=== PATIENT | female | born 1980 | race Caucasian/White ===

== ENCOUNTER 2017-03-13 11:58 | Inpatient (IN) | payer SELFPAY ==
[2017-03-13] MEDS ORDERED: Sodium Chloride 0.9% 1,000 ML IV ONE (12:22)
--- NOTE | 2017-03-13 12:27 | ED Physician Chart ---
Chief Complaint/HPI - Patient Information Date Seen:: 03/13/17 Time Seen:: 12:23 Chief Complaint:: dizzy History of Present Illness:: pt feels very dizzy since last nt...worse w turning head. no BROWNE. no n/v/d. feels numb in l arm and left face. very anxious. no leonila med hx. no cva hx. no mi hx. no meds tried. no h/o trauma. no recent illness. pt speaks only argent[place]. Allergies:: Allergies Allergy/AdvReac Type Severity Reaction Status Date / Time tetracycline Allergy Verified 03/13/17 12:09 Vitals:: Vital Signs - 8 hr 03/13/17 12:04 Temp 97.4 F HR 97 RR 16 BP 143/98 O2 Sat % 98 Historian:: Patient Review of Systems - Review of Systems General/Constitutional: No fever, No chills, No weight loss, No weakness, No diaphoresis, No edema, No loss of appetite Skin: No skin lesions, No rash, No bruising Head: No headache, No light-headedness Eyes: No loss of vision, No pain, No diplopia ENT: No earache, No nasal drainage, No sore throat, No tinnitus Neck: No neck pain, No swelling, No thyromegaly, No stiffness, No mass noted Cardio Vascular: No chest pain, No palpitations, No PND, No orthopnea, No edema Pulmonary: No SOB, No cough, No sputum, No wheezing GI: No nausea, No vomiting, No diarrhea, No pain, No melena, No hematochezia, No constipation, No hematemesis G/U: No dysuria, No frequency, No hematuria Musculoskeletal: No bone or joint pain, No back pain, No muscle pain Endocrine: No polyuria, No polydipsia Psychiatric: No prior psych history, No depression, Anxiety, No suicidal ideation Hematopoietic: No bruising, No lymphadenopathy Allergic/Immuno: No urticaria, No angioedema Neurological: No syncope, No focal symptoms, No weakness, No paresthesia, No headache, No seizure, Dizziness, No confusion, No vertigo Past Medical History - Past Medical History Past Medical History: No significant medical hx Social History: Non Smoker, No Alcohol, No Drug Use Medication: Reviewed Family Medical History - Family Member Mother Hx Family Stroke: Yes (sister) Other Medical History: denies family medical hx Physical Exam - Physical Examination General/Constitutional: Awake, Well-developed, well-nourished, Alert, No distress, GCS 15, Non-toxic appearing, Ambulatory Head: Atraumatic Eyes: Lids, conjuctiva normal, PERRL, EOMI Skin: Nl inspection, No rash, No skin lesions, No ecchymosis, Well hydrated, No lymphadenopathy ENMT: External ears, nose nl, Nasal exam nl, Lips, teeth, gums nl Neck: Nontender, Full ROM w/o pain, No JVD, No nuchal rigidity, No bruit, No mass, No stridor Respiratory: Nl effort/Exclusion, Clear to Auscultation, No Wheeze/Rhonchi/Rales Cardio Vascular: RRR, No murmur, gallop, rubs, NL S1 S2 GI: No tenderness/rebounding/guarding, No organomegaly, No hernia, Normal BS's, Nondistended, No mass/bruits, No McBurney tenderness : No CVA tenderness Extremities: No tenderness or effusion, Full ROM, normal strength in all extremities, No edema, Normal digits & nails Neuro/Psych: Alert/oriented, DTR's symmetric, Normal sensory exam, Normal motor strength, Judgement/insight normal, Mood normal, Normal gait, No focal deficits Other Neuro/Psych comments:: pt dizzy increased w eomi testing but no defecits. no nystagmus seen. pt says decreased lt touch sensation to l arm and l leg and l side of face no alt in strength or coordination Misc: normal gait, Normal back, No paraspinal tenderness Labs/Radiology/EKG Results - Lab Results Results: Laboratory Tests 03/13/17 03/13/17 03/13/17 12:34 12:34 12:34 WBC 11.7 H RBC 4.99 Hgb 14.2 Hct 42.0 MCV 84.2 MCH 28.5 MCHC Differential 33.9 RDW 12.6 Plt Count 292 MPV 8.5 Neutrophils % 69.2 Lymphocytes % 25.7 Monocytes % 3.6 Eosinophils % 1.1 Basophils % 0.4 Sodium 133 L Potassium 3.1 L Chloride 104 Carbon Dioxide 22.0 Anion Gap 10.1 BUN 14 Creatinine 0.8 Est GFR ( Amer) > 60.0 Est GFR (Non-Af Amer) > 60.0 BUN/Creatinine Ratio 17.5 Glucose 132 H Calcium 9.5 Total Bilirubin 0.4 AST 10 L ALT 14 Alkaline Phosphatase 60 Troponin I < 0.01 L Total Protein 7.5 Albumin 4.2 Globulin 3.3 Albumin/Globulin Ratio 1.3 Urine Test 03/13/17 13:10 WBC RBC Hgb Hct MCV MCH MCHC Differential RDW Plt Count MPV Neutrophils % Lymphocytes % Monocytes % Eosinophils % Basophils % Sodium Potassium Chloride Carbon Dioxide Anion Gap BUN Creatinine Est GFR ( Amer) Est GFR (Non-Af Amer) BUN/Creatinine Ratio Glucose Calcium Total Bilirubin AST ALT Alkaline Phosphatase Troponin I Total Protein Albumin Globulin Albumin/Globulin Ratio Urine Test NEGATIVE k low was corrected w 40meq po k. - Radiology Results Results: ct HEAD NAD : 1980 Age/Sex: 36/F Location: ER Ordering Physician: Juan Luis Badillo M.D. Procedure(s): CT HEAD W/O CONTRAST Date of Service: 03/13/17 Accession Number: [id number] Head CT without intravenous contrast Indication: Dizziness and left arm numbness Comparison: None Technique: Axial images were obtained from the vertex to the skull base without IV contrast. Coronal reconstructions were made. Total DLP: 566, CTDI35 FINDINGS: Images of the brain obtained without contrast demonstrate no acute hemorrhage. No mass lesions identified. The ventricles and basal cisterns are patent. The melendez-white matter differentiation is preserved. There is no mass effect or midline shift. No skull fractures identified. No soft tissue swelling. The paranasal sinuses are clear. IMPRESSION: No CT evidence of an acute abnormality. - EKG Interpretations EKG Time:: 12:40 Rate & Rhythm: nsr 90 [place]: 58 qrs Intervals: nrml st/t waves ED Septic Shock - . Is Septic Shock (SBP<90, OR Lactate>4 mmol\L) present?: No - <6hrs of presentation: Vital Signs: Vital Signs - 8 hr 03/13/17 12:04 Temp 97.4 F HR 97 RR 16 BP 143/98 O2 Sat % 98 Reassessment (Disposition) - Reassessment Reassessment:: 16;00p) results reviewed w pt through [place] phone can tester. Pt informed of all results. her dizziness has improved w meclizine. she is still having numbness ot the left face and left arm which has improved some but still persists. explained to pt that I believe most likely she has vertigo. she has no hx of this. however I do not have a explanation for her left arm/face numbness and despite nrml ct head cant exclude a cva/tia or other neuro process. dw pt plan and she is willing to be a admit to have neuro consult and observation. call placed to manager transfusion ..awaiting call back. no return call by 4;32p case kyler razo..will admit for cva eval. Reassessment Condition:: Unchanged - Diagnosis Diagnosis:: 1 dizziness - likely vertigo 2 left side numbness - r/o cva - Patient Disposition Admitted to:: Telemetry Condition at Disposition:: Unchanged ED Discharge Plan - Patient Disposition Admit/Discharge/Transfer: Other Care w/in this hosp Condition at Disposition: Stable
[2017-03-13 13:03] LABS: ALB/GLOB RATIO 1.3 (1.0-1.8); ALKALINE PHOSPHATASE 60 U/L (34-104); ANION GAP 10.1 (7.0-16.0); BILIRUBIN,TOTAL 0.4 mg/dL (0.3-1.0); BUN - UREA NITROGEN 14 mg/dL (7-25); BUN/CREATININE RATIO 17.5; CALCIUM SERUM 9.5 mg/dL (8.6-10.3); CHLORIDE 104 mEq/L (98-107); CREATININE - SERUM 0.8 mg/dL (0.6-1.2); GLUCOSE 132 mg/dL (70-105); POTASSIUM SERUM 3.1 mEq/L (3.5-5.1); SGOT 10 U/L (13-39); SGPT/ALT 14 U/L (7-52); SODIUM SERUM 133 mEq/L (136-145)
[2017-03-13 13:11] LABS: % BASOPHILS 0.4 % (0.0-2.0); % EOSINOPHILS 1.1 % (0.0-5.0); % LYMPHOCYTES 25.7 % (20.0-50.0); % MONOCYTES 3.6 % (2.0-10.0); % NEUTROPHILS 69.2 % (40.0-80.0); HEMOGLOBIN 14.2 gm/dL (11.7-15.5); MEAN CELL VOLUME 84.2 fl (81-100); MEAN CORPUSCULAR HEMOGLOBIN 28.5 pg (27.0-31.0); MEAN CORPUSCULAR HGB CONC 33.9 pg (28.0-36.0); MEAN PLATELET VOLUME 8.5 fl; NEUTROPHILE ABSOLUTE 8.2 Th/cmm (1.8-8.0); PLATELET COUNT 292 Th/cmm (150-400); RED BLOOD COUNT 4.99 Mil/cmm (3.80-5.10); RED CELL DISTRIBUTION WIDTH 12.6 % (11.5-20.0); WHITE BLOOD COUNT 11.7 Th/cmm (4.8-10.8)
[2017-03-13] MEDS ORDERED: Potassium Chloride 20 mEq ER Tab PO ONE ×2 (14:57→15:04)
--- NOTE | 2017-03-13 15:24 | Diagnostic Imaging Report ---
Head CT without intravenous contrast Indication: Dizziness and left arm numbness Comparison: None Technique: Axial images were obtained from the vertex to the skull base without IV contrast. Coronal reconstructions were made. Total DLP: 566, CTDI35 FINDINGS: Images of the brain obtained without contrast demonstrate no acute hemorrhage. No mass lesions identified. The ventricles and basal cisterns are patent. The melendez-white matter differentiation is preserved. There is no mass effect or midline shift. No skull fractures identified. No soft tissue swelling. The paranasal sinuses are clear. IMPRESSION: No CT evidence of an acute abnormality.
[2017-03-13 22:57] VITALS: BP 127/84
--- NOTE | 2017-03-14 02:31 | Admit Criteria Form ---
Admit Criteria Forms - Admit Criteria Diagnosis: VERTIGO Clinical Indications for Admission to Inpatient Care (Place 'X' for any and all applicable criteria): Admission is indicated for ANY ONE of the following(1)(2)(3)(4): [ ]I. Acute bacterial labyrinthitis [X ]II. A suspected etiology that requires admission for treatment [X ]III. Inpatient admission required rather than observation care (Also use Vertigo: Observation Care as appropriate) because of ANY ONE of the following: [ ]a) Hemodynamic instability that is severe or persistent [ ]b) Signs or symptoms that are severe or persistent (eg, vomiting , orthostasis, inability to ambulate) [ ]c) Cardiac arrhythmias of immediate concern [ ]d) Severe (new) neurologic findings requiring inpatient care as indicated by ANY ONE of the following(6)(7) [ ]1) Cerebral bleeding, ischemia, or vasospasm(8)(9) [ ]2) Increased intracranial pressure or hydrocephalus(10) (11)(12) [ ]3) Papilledema [ ]4) Cerebral edema [ ]5) Mass effect on CT scan [ ]e) Vomiting that is severe or persistent [ ]f) Continuous IV infusion of anticoagulation, platelet inhibitor, vasoactive, or antiarrhythmic medication [ ]g) Cerebral bleeding, hydrocephalus, or vasospasm monitoring(14) [ ]h) Increased intracranial pressure or cerebral edema monitoring [X ]i) Other condition, treatment or monitoring requiring inpatient admission [ ]IV. Cerebellar, brainstem, or cerebral ischemia or hemorrhage(5) Extended stay beyond goal length of stay may be needed for evaluating and treating a specific cause of dizziness, including(26): [ ]a) Head injury (27) ( Also use Traumatic Brain Injury, Nonsurgical Treatment guideline) [ ]b) New-onset vertebrobasilar vascular insufficiency(23) [ ]c) Acute Meniere disease with intractable symptoms [ ]d) Cardiac arrhythmias or conduction defects [ ]e) Acute neurologic event causing dizziness [ ]f) Myocardial ischemia [ ]g) Acute bacterial labyrinthitis(1) [ ]h) Severe acute vestibular neuronitis(18) The original [facility] content created by Jason Maldonado has been revised. The portions of the content which have been revised are identified through the use of italic text or in bold, and [employer] has neither reviewed nor approved the modified material. All other unmodified content is copyright [facility]. Please see references footnoted in the original [facility] edition 2016 Admit Criteria Met?: Yes
[2017-03-14] MEDS ORDERED: Aspirin 81mg Chewable Tab PO SCH (09:00)
--- NOTE | 2017-03-14 15:20 | Diagnostic Imaging Report ---
Bilateral carotid Doppler ultrasound exam HISTORY: Stroke, CVA Sonographic sector images were obtained through the carotid bifurcation regions bilaterally. Additional Doppler data was obtained. The exam of the right side is free of any significant focal atherosclerotic plaque. Antegrade vertebral artery flow. Velocities and flow ratios are normal (ICA/CCA equals 1.1). The exam of the left side is also free of any significant focal plaque. Antegrade vertebral artery flow. Slight increase in velocity within the proximal portion of the common carotid artery and internal carotid artery region. ICA/CCA flow ratio is normal (0.76). IMPRESSION: 1. No evidence of hemodynamically significant atherosclerotic vascular disease.
--- NOTE | 2017-03-15 09:32 | General History and Physical ---
History of Present Illness - HPI HPI & Vital Signs: Last Vital Signs Temp 98.5 F 03/14/17 20:00 Pulse 98 03/14/17 20:00 Resp 18 03/14/17 20:00 BP 118/82 03/14/17 20:00 Pulse Ox 97 03/14/17 20:00 36-year-old female presented to the emergency room on March 13, 2017 with chief complaint of dizziness for last 2 days duration. According to the patient it started by its own , it was associated with the numbness and pain in her left ear and Face after turning her head to his left side. Patient states her dizziness is not associated with headache ,diplopia, nausea, vomiting, tingling numbness on upper and lower extremity, difficulty in talking, difficulty in walking, diarrhea, dysuria, hematuria, hematochezia ,melena, vaginal bleeding. 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: Report: No Pertinent Hx GI: Report: No Pertinent Hx Psych: Report: No Pertinent Hx Musculoskeletal: Report: No Pertinent Hx Rheumatologic: Report: No pertinent Hx Infectious Disease: Report: No Pertinent Hx Renal/: Report: No Pertinent Hx Endocrine: Report: No Pertinent Hx Dermatology: Report: No Pertinent Hx Family Medical History - Family Member Mother History Unknown: Yes Ethnicity: Hx Family Cancer: No Hx Family Coronary Artery Disease: No Hx Family Congestive Heart Failure: No Hx Family Stroke: Yes (Sister) Hx Family Diabetes: No Hx Family Seizures: No Hx Family Dementia: No Hx Family AIDS: No Other Medical History: denies family medical hx Social History Smoke: No Alcohol: None Drugs: None Lives: With Family - Medications Home Medications: Home Medication Medication Instructions Recorded Type Loratadine/Pseudoephedrine 1 each PO DAILY #30 t24 03/14/17 Rx [Claritin-D 24 Hour Tablet] Meclizine [Antivert*] 25 mg PO Q6HR PRN #45 tab 03/14/17 Rx - Allergies Allergies/Adverse Reactions: Allergies Allergy/AdvReac Type Severity Reaction Status Date / Time tetracycline Allergy Verified 03/13/17 12:09 Review of Systems - Review of Systems Constitutional: Report: Other Eyes: Report: Other ENT: Report: Other Respiratory: Report: Sputum Cardiovascular: Report: Other Gastrointestinal: Report: Other Genitourinary: Report: Other Musculoskeletal: Report: Other Skin: Report: Other Neurological: Report: Other (14 points review of systems are negative) PE - Physical Exam HEENT: Report: Pharyngeal Erythema and Exudates Noted Neck: Report: WNL Cardiovascular Systems: Report: Regular, Rate and Rhythm Respiratory: Report: Clear to Auscultation of lung torrez Abdomen: Report: Non-tender to palpation Back: Report: Inspection of back is within normal limits. Extremities: Report: Non-tender to palpation., Patient had full range of motion Skin: Report: Color of skin is within normal limits Neuro/Psych: Report: A+Ox3, CN II-XII intact, Disoriented to name time or place , Mood affect is within normal limits, No motor deficit, No sensory deficit Other Systems Exam: Nystagmus noted when turning her head towards left. - Lab Results All Lab Results last 24 hours: Laboratory Last Values WBC 11.7 Th/cmm (4.8-10.8) H 03/13/17 12:34 RBC 4.99 Mil/cmm (3.80-5.10) 03/13/17 12:34 Hgb 14.2 gm/dL (11.7-15.5) 03/13/17 12:34 Hct 42.0 % (35.0-45.0) 03/13/17 12:34 MCV 84.2 fl (81-100) 03/13/17 12:34 MCH 28.5 pg (27.0-31.0) 03/13/17 12:34 MCHC Differential 33.9 pg (28.0-36.0) 03/13/17 12:34 RDW 12.6 % (11.5-20.0) 03/13/17 12:34 Plt Count 292 Th/cmm (150-400) 03/13/17 12:34 MPV 8.5 fl 03/13/17 12:34 Neutrophils % 69.2 % (40.0-80.0) 03/13/17 12:34 Lymphocytes % 25.7 % (20.0-50.0) 03/13/17 12:34 Monocytes % 3.6 % (2.0-10.0) 03/13/17 12:34 Eosinophils % 1.1 % (0.0-5.0) 03/13/17 12:34 Basophils % 0.4 % (0.0-2.0) 03/13/17 12:34 Sodium 133 mEq/L (136-145) L 03/13/17 12:34 Potassium 3.1 mEq/L (3.5-5.1) L 03/13/17 12:34 Chloride 104 mEq/L (98-107) 03/13/17 12:34 Carbon Dioxide 22.0 mEq/L (21.0-31.0) 03/13/17 12:34 Anion Gap 10.1 (7.0-16.0) 03/13/17 12:34 BUN 14 mg/dL (7-25) 03/13/17 12:34 Creatinine 0.8 mg/dL (0.6-1.2) 03/13/17 12:34 Est GFR ( Amer) > 60.0 ml/min (>90) 03/13/17 12:34 Est GFR (Non-Af Amer) > 60.0 ml/min 03/13/17 12:34 BUN/Creatinine Ratio 17.5 03/13/17 12:34 Glucose 132 mg/dL (70-105) H 03/13/17 12:34 Calcium 9.5 mg/dL (8.6-10.3) 03/13/17 12:34 Total Bilirubin 0.4 mg/dL (0.3-1.0) 03/13/17 12:34 AST 10 U/L (13-39) L 03/13/17 12:34 ALT 14 U/L (7-52) 03/13/17 12:34 Alkaline Phosphatase 60 U/L (34-104) 03/13/17 12:34 Troponin I < 0.01 ng/mL (0.01-0.05) L 03/13/17 12:34 Total Protein 7.5 gm/dL (6.0-8.3) 03/13/17 12:34 Albumin 4.2 gm/dL (3.7-5.3) 03/13/17 12:34 Globulin 3.3 gm/dL 03/13/17 12:34 Albumin/Globulin Ratio 1.3 (1.0-1.8) 03/13/17 12:34 Urine Test NEGATIVE 03/13/17 13:10 - Assessment Assessment: Vertego secondary to labyrinthitis. - Plan Plan: I do not see any clinical evidence of neurological stroke. I did admit this patient's after argument with the ER M.D, because my clinical suspicion for this patient to having stroke was extremely low.I will discharge her to home with prescription of Antivert 25 mg 1 tablet every 6 hours nefor [address] and as needed. Patient is advised to see her primary care M.D. as soon as possible to see. If persistent symptoms or symptoms getting worse patient is adverse to the emergency room. Neurologic evaluation as ordered. Please note this patient is seen and examined by me on March 14, 2017 at 9 AM but due to unavailability of drawstring knotter HP is transcribed today.
--- NOTE | 2017-03-15 09:42 | Discharge Summary ---
General Discharge Summary - Discharge Summary Date of Admission: 03/13/17 Admitting Diagnosis: vertigo Discharge Date: 03/14/17 Discharge Diagnosis: vertigo secondary to labyrinthitis. Hospital Course: [facility] patient was monitored. Patient underwent neurological evaluation. Carotid ultrasound were done by radiology department and read negative for hemodynamically significant stenosis. Patient was also seen by neurologist. It was noted patient's symptoms are secondary to labyrinthitis. It was decided patient scheduled for discharge home and have outpatient follow-up with primary care MAtiya in one week. If recurrent symptoms patient is advised to go to the emergency room or call 911. Treatment: Carotid ultrasound. Neurological evaluation. General nursing care. Condition at Discharge: Stable Home Medications: Home Medication Medication Instructions Recorded Type Loratadine/Pseudoephedrine 1 each PO DAILY #30 t24 03/14/17 Rx [Claritin-D 24 Hour Tablet] Meclizine [Antivert*] 25 mg PO Q6HR PRN #45 tab 03/14/17 Rx Prescriptions: Meclizine [Antivert*] 25 mg PO Q6HR PRN #45 tab PRN Reason: Dizziness Loratadine/Pseudoephedrine [Claritin-D 24 Hour Tablet] 1 each PO DAILY #30 t24 Consults and Follow-Up: PT HAS NO,PCP [Other] not on staff,PCP is [Primary Care Provider] - Consulting Speciality: Neurology Instructions: Meclizine tablets or capsules, Benign Positional Vertigo
== END 2017-03-14 20:30 | disposition home or self-care (01) | DRG 149 ==
LOC: ER 11:58 → TELE 17:35
PROVIDERS: ADMIT Internal Medicine; ATTEND Internal Medicine
DX: H83.02 Labyrinthitis, left ear (principal); Z88.1 Allergy status to other antibiotic agents; Z82.3 Family history of stroke
CPT/HCPCS: 36415-UA; 70450-TC; 80053-TC; 81025-TC; 84484-TC; 85025-TC; 93005; 93880-TC; J7030; Z7610